=== PATIENT | female | born 1990 | race Caucasian/White ===

== ENCOUNTER 2017-03-03 21:14 | Emergency (ER) | payer OTHER ==
[~2017-03-03 21:14] MED LIST: COLACE 100MG C100 MG PO; IBUPROFEN600 MG PO; NORCO 5-325 TA1 EACH PO
[2017-03-04 02:14] LABS: HEMOGLOBIN 14.2 gm/dl (12.3-15.3); RED BLOOD COUNT 4.76 M/UL (4.00-5.10); WHITE BLOOD COUNT 11.9 K/UL (4.5-11.0)
[2017-03-04 02:34] LABS: BUN/CREATININE RATIO 15 (0-10)
== END 2017-03-04 04:53 | disposition home or self-care (01) ==
LOC: ER1 21:14
PROVIDERS: Physician Assistant
DX: R51 Headache (principal); J02.0 Streptococcal pharyngitis
CPT/HCPCS: 36415; 70450; 80053; 85025; 87040; 87081; 87880; 96361; 96365; 96366; 96372; 96375; 99284; J0561; J1200; J2765